=== PATIENT | male | born 1990 | race Caucasian/White ===

== ENCOUNTER 2017-08-10 12:14 | Emergency (ER) | payer MEDICAID ==
[~2017-08-10] VITALS: Ht 167.6 cm; Wt 71.2 kg
[~2017-08-10 12:14] MED LIST: GUAI120015 PO; PSEU-259 PO
[2017-08-10 12:20] VITALS: BP 118/77
[2017-08-10] MEDS ORDERED: CIPR-230 PO (13:45)
[2017-08-10 13:54] LABS: CLARITY,URINE Cloudy (Clear); COLOR,URINE Yellow (Yellow); GLUCOSE, URINE Negative (Neg); KETONES,URINE Negative (Neg); LEUKOCYTE ESTERASE ,URINE Trace (Neg); NITRITES, URINE Negative (Neg); OCCULT BLOOD,URINE Negative (Neg); PROTEIN,URINE Negative (Neg); UA COLLECTION TYPE CLN CATCH MIDSTREAM
[2017-08-10 13:59] LABS: BACTERIA,URINE NONE SEEN /HPF (Neg); MUCUS STRANDS NONE SEEN /LPF (Neg); RBC,URINE NONE SEEN /HPF (0-2); SQUAMOUS EPITHELIAL CELL,UR NONE SEEN /LPF (FEW); WBC,URINE NONE SEEN /HPF (0-4)
[2017-08-10 14:00] LABS: AMORPHOUS PHOSPHATES 1+
== END 2017-08-10 13:55 | disposition home or self-care (01) ==
LOC: ER 12:14
DX: N50.811 Right testicular pain (principal); Z88.1 Allergy status to other antibiotic agents; Z79.899 Other long term (current) drug therapy
CPT/HCPCS: 76870; 81001; 87088; 99285

== ENCOUNTER 2018-04-01 01:07 | Emergency (ER) | payer MEDICAID ==
[~2018-04-01] VITALS: Ht 170.2 cm; Wt 69.7 kg
[2018-04-01 01:14] VITALS: BP 119/67
== END 2018-04-01 02:06 | disposition home or self-care (01) ==
LOC: ER 01:08
DX: L85.3 Xerosis cutis (principal); Z88.1 Allergy status to other antibiotic agents
CPT/HCPCS: 99281

== ENCOUNTER 2018-04-19 01:59 | Emergency (ER) | payer MEDICAID ==
[~2018-04-19] VITALS: Ht 167.6 cm; Wt 69.9 kg
[2018-04-19] MEDS ORDERED: IBUP-1986 PO (02:34)
[2018-04-19] MEDS ORDERED: CLIN300C54 PO (02:34)
[2018-04-19] MEDS ORDERED: clindamycin-Cleocin 900mg/D5W 50 ML IV ONE (02:35)
[2018-04-19 03:19] VITALS: BP 111/76
== END 2018-04-19 03:22 | disposition home or self-care (01) ==
LOC: ER 02:00
DX: L03.011 Cellulitis of right finger (principal); Z88.1 Allergy status to other antibiotic agents
CPT/HCPCS: 73140; 96365; 99284; J3490

== ENCOUNTER 2018-04-20 23:22 | Emergency (ER) | payer MEDICAID ==
[~2018-04-20] VITALS: Ht 170.2 cm; Wt 69.5 kg
[~2018-04-20 23:22] MED LIST changes: +CLIN300C54 PO; +IBUP-1986 PO
[2018-04-21 00:08] VITALS: BP 105/56
[2018-04-21] MEDS ORDERED: LIDOcaine 1% 30ml preserv. free vial IJ ONE (00:20)
[2018-04-21] MEDS ORDERED: HYDROcodone/acetaminophen 10/325mg tab PO ONE (00:40)
[2018-04-21] MEDS ORDERED: sulfamethoxazole/trimethoprim DS (800/160mg) tablet PO ONE (00:45)
[2018-04-21] MEDS ORDERED: SULF1TAB49 PO (01:00)
[2018-04-21] MEDS ORDERED: HYDR-4353 PO (01:00)
== END 2018-04-21 01:12 | disposition home or self-care (01) ==
LOC: ER 23:23
DX: L02.511 Cutaneous abscess of right hand (principal); Z88.1 Allergy status to other antibiotic agents
CPT/HCPCS: 26010; 99283; J3490

== ENCOUNTER 2018-07-04 11:22 | Emergency (ER) | payer MEDICAID ==
[~2018-07-04] VITALS: Ht 167.6 cm; Wt 65.6 kg
[~2018-07-04 11:22] MED LIST changes: -CLIN300C54 PO
[2018-07-04 11:27] VITALS: BP 115/84
== END 2018-07-04 12:13 | disposition home or self-care (01) ==
LOC: ER 11:22
DX: N48.89 Other specified disorders of penis (principal); Z88.1 Allergy status to other antibiotic agents; Z79.899 Other long term (current) drug therapy
CPT/HCPCS: 99281